=== PATIENT | male | born 2000 | race Caucasian/White ===

== ENCOUNTER → 2020-09-18 09:45 | Outpatient (BNVA) | payer OTHER, SELFPAY | PROVIDERS: PCP Pediatrics; Visit Provider Physician Assistant Medical | DX: S09.22XA Traumatic rupture of left ear drum, initial encounter (principal); S09.21XA Traumatic rupture of right ear drum, initial encounter; W22.8XXA Striking against or struck by other objects, initial encounter | CPT/HCPCS: 99202 ==

== ENCOUNTER 2025-05-27 07:52 | Outpatient (REF) | payer OTHER, SELFPAY ==
--- NOTE | ~2025-05-27 | XR_ITS ---
EXAMINATION: XR LUMBOSACRAL SPINE CLINICAL INFORMATION: M54.16 - Radiculopathy, lumbar region COMPARISON: None available. TECHNIQUE: Three views of the lumbosacral spine. FINDINGS: No scoliosis. There is mild straightening of the normal lordosis. No subluxations. No compression deformity, acute fracture, or suspicious bone lesion. Disc spaces appear grossly preserved. Facets are normally aligned. No significant facet arthrosis noted. Mild periarticular sclerosis of the left SI joint noted, possibly artifactual. Normal-appearing right SI joint. Sacrum is intact. XR/XR lumbar spine 2-3V IMPRESSION: 1. No acute findings of the lumbar spine. 2. Mild periarticular sclerosis of the left SI joint noted, possibly related to technique. Cannot definitively exclude SI joint inflammatory disease. Recommend correlating with dedicated SI joint radiographs. Electronically signed by: Kamar Hope MD 05/27/2025 10:21 AM EDT
== END 2025-05-27 07:53 | disposition home or self-care (01) ==
LOC: HO.HMGCX 07:52
PROVIDERS: PCP Pediatrics; Visit Provider Nurse Practitioner Family
DX: M54.16 Radiculopathy, lumbar region (principal)
CPT/HCPCS: 72100

== ENCOUNTER 2025-05-27 07:52 | Outpatient (AMB) | payer OTHER, SELFPAY ==
--- OUTSIDE RECORDS SUMMARY | 2025-05-27 07:56 | XMS_ITS | Clinical Summary ---
Author Organization [facility] Address [address] [place] [id number] Phone Care Team Providers Care American Studies Professor Name Role Phone Jose Angel Bourne MD Primary Care Provider [phone] Allergies Active Allergy Reactions Criticality Noted Date Comments Fruit Extracts Medications amphetamine-dextro amphetamine XR (Adderall XR) 10 MG 24 hr capsuleIndications :Attention deficit disorder with hyperactivity Take 1 capsule (10 mg total) by mouth every morning. 30 capsule 3 Active Active Problems Problem Noted Date Diagnosed Date Stress 11/10/2022 Wrist sprain, left, initial encounter 06/04/2022 Assessment & Plan (06/04/2022 9:21 AM EDT): Bone bruise or strain to wrist. Recommended rest and ibuprofen. Given wrist splint to give support to wrist for the next week. Neck strain, initial encounter 06/04/2022 Assessment & Plan (06/04/2022 9:22 AM EDT): Strain of trapezii muscles bilaterally. No concern for shoulder joint or rotator cuff. No concern for a spine issue or nerve irritation. Given stretching and strengthening exercises to help with this area. Encounter for smoking cessation counseling 01/20 Assessment & Plan (01/20/2021 2:47 PM EDT): He wants to wean off his nicotine vapes. We will trial him on chantix/Varenicline to try and decreas the effect of the nicotine. We will see him back in 1 month. Chronic bilateral low back pain without sciatica 04/18/2020 Influenza vaccination declined 10/27/2018 Attention deficit disorder with hyperactivity Overview (08/25/2018): Attention deficit hyperactivity disorder (314.01) Onset: 05/19/2011 Added by: Molly Abarca Assessment & Plan (11/10/2022 10:53 PM EST): Prescribing 10mg Adderall XR daily with a follow up in 4-6 weeks to see how this is working for him. He has some history of trouble sleeping when on 20mg Adderall XR in the past. Assessment & Plan (01/20/2021 2:46 PM EDT): He is using adderall xr for work. This is working for him well. 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 He is unclear how to proceed with this. Other atopic dermatitis and related conditions 0 12/18/2015 Overview (08/25/2018): Eczema (691.8) Onset: 12/18/2015 Added by: Jose Angel Bourne Resolved Problems Problem Noted Date Diagnosed Date Resolved Date Acute left-sided low back pa in without sciatica 01/08/2019 02/14/2021 Immunizations Immunization Administration Dates Next Due DTaP 5 06/09/2005, 2,2000,09/14,2000 H1N1 Nasal 08/30/2009 HPV Vaccine 9 Valent 09/19/2017,09/10/2016 HPV, Quadrivalent 01/28/2015 Hep B, ped/adol 08/18/2001,2000,2000 Hib (PRP-T) 08/18/2001, 1,2000,07/18 IPV 06/09/2005, 2,2000,07/18 Influenza, injectable, quadr ivalent, preservative free 09/19/2017 Influenza, injectable, trivalent 013,08/13/2009,10/22/2008,09/08 Influenza, intranasal, trivalent 09/08/2012,08/07,08/07/2010 MMR 06/09/2005,05/17/2001 Meningococcal Conj (Menactra) MCV4P 09/10/2016,1 Pneumococcal Conjugate 08/18/2001,2000,2000,07/18 Tdap 08/19/2011 Varicella 08/19/2011,05/17/2001 Family History Medical History Relation Name Comments No Known Problems Father Mario No Known Problems Half-Sister 1 Althea No Known Problems Half-Sister 2 Samantha No Known Problems Mother Marilynn Relation Name Status Comments Father Mario Alive Half-Sister 1 Althea Alive Half-Sister 2 Samantha Alive Mother Marilynn Alive Social History Tobacco Use Types Packs/Day Years Used Date Smoking Tobacco: Never Smokeless Tobacco: Never Comments:Never Smoker Hunger/Food Answer Date Recorded In the last 12 months, did y warren or your family ever eat less than you felt you should because there wasn't enough money for food? No 01/01/2021 Stable Housing Answer Date Recorded Are you worried that in the next 2 months you may not have stable housing? No 01/01/2021 Transportation Concerns Answer Date Rec orded In the last 12 months, have you or your family ever had to go without healthcare because you didn't have a way to get there? No 01/01/2021 Hazards in Home Answer Date Recorded Think about the place you li ve. Do you have problems with any of the following? Pests (mice or roaches), mold, no/not working smoke detectors, water leaks, no window guards. No 2020 Financing Utilities Answer Date Recorde d In the last 12 months, has t he electric, gas, oil, or water company threatened to shut off your services in your home? No 01/01/2021 Safety at Home Answer Date Recorded Are you or your family worried about feeling saf e in your home? No 01/01/2021 Outside Support Answer Date Recorded Do you feel that you need mo re support from other people or programs to help you care for yourself or your family? No 01/01/2021 Understanding Health Concerns Answer Da te Recorded Do you need help understandi ng your or your child's healthcare needs (diagnosis, medications, plan, etc.)? No 01/01/2021 Financing Health Concerns Answer Date R ecorded In the last 12 months, was t here a time when your child needed to see a doctor or get medications or supplies but could not because of cost? No 01/01/2021 Missing School or Work Answer Date Kerwin rded Did you or your child miss s chool or work because of a health problem that could have been avoided? No 01/01/2021 Sex and Gender Information Value Date Recorded Sex Assigned at Not on file Legal Sex Male 6:37 PM EDT Gender Identity Not on file Sexual Orientation Not on file Last Filed Vital Signs Vital Sign Reading Time Taken Comments Blood Pressure 104/70 11/10/2022 11:09 AM EST Pulse 89 08/09/2022 1:06 PM EDT Temperature 36.5 C (97.7 F) 11/10/2022 11:09 AM EST Respiratory Rate - - Oxygen Saturation - - Inhaled Oxygen Concentration - - Weight 92.1 kg (203 lb 1.6 oz) 11/10/2022 11:09 AM EST Height 181.6 cm (5' 11.5 ) 11/10/2022 11:[address] Body Mass Index 27.93 11/10/2022 11:09 AM EST Plan of Treatment Health Maintenance Due Date Last Done Comments DTaP,Tdap,and Td Vaccines (7 - Td or Tdap) 08/19/2021 08/19/2011, 06/09/2005, 03/02/2002, Additional history exists COVID-19 Vaccine ( season) 2024 Influenza Vaccines (#1) 2025 09/19/20 17, 08/18/2013, 09/08/2012, Additional history exists HIB Vaccines Completed 08/18/2001, 07/2001, 2000, Additional history exists Hepatitis B Vaccines Completed 08/18/2001, 2000, 2000 Pneumococcal Vaccine Completed 08/18/2001, 2000, 2000, Additional history exists IPV Vaccines Completed 06/09/2005, 02/06, 2000, Additional history exists MMR Vaccines Completed 06/09/2005, 05/17/2001 Varicella Vaccines Completed 08/19/2011, 05/17/2001 Meningococcal Vaccine Completed 09/10/2016, 011 HPV Vaccines Completed 09/19/2017, 1102/2016, 01/28/2015 Hepatitis A Vaccines Aged Out No long er eligible based on patient's age to complete this topic Men B Vaccine Aged Out No longer elig ible based on patient's age to complete this topic Insurance [address] [place] [address] [facility] [employer] [facility] [employer] Care Teams American Studies Professor Relationship Specialty Start Date End Date Jose Angel Bourne MD [address] [place] [address] [place] [address] PCP - General 03/15/18
--- NOTE | 2025-05-27 08:01 | MHC.OFFWIV ---
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 Denies any inciting events. Denies any recent illnesses or injuries. 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 Denies any saddle anesthesia or bowel/bladder dysfunction. Denies any pain to touch of his feet. Would like to get established with a PCP and also would like some resources for therapy for general mental health wellness. Reports a 1 year history of intermittent episodes of chest pain which lasts about 1 minute with no aother associated symptoms such as SOB, dizziness, palpitations, or radiation of pain. Denies any pain at this time. Review of Systems Const All systems reviewed & are unremarkable except as noted in HPI and below Physical Exam Vital Signs: Last Vital Signs Temp 98.1 F 05/27/25 08:03 Pulse 74 05/27/25 08:03 BP 110/82 05/27/25 08:03 Pulse Ox 99 05/27/25 08:03 Oxygen Delivery Method Room Air 05/27/25 08:03 BMI result Body Mass Index 29.5 Const General: cooperative, healthy appearing, comfortable, no acute distress and well developed HEENT Head: Yes normal to inspection Resp Effort & Inspection: normal respiratory effort Auscultation: clear to auscultation bilaterally Cardio Jugular venous distension: no JVD Palpation: normal PMI Rate: regular rate Rhythm: regular rhythm Heart sounds: S1 normal heart sound present and S2 normal heart sound present Back/Spine/Pelvis Thoracic/Lumbar Spine: thoracic and lumbar spine normal to inspection, pain with thoraco-lumbar ROM (flexion/extension) and straight leg raise positive (b/l at 45 degrees) Skin General skin exam: no rashes or lesions noted Neuro Other: paresthesias 4th/5th toes General: gait normal, tone normal and no focal motor deficits Cognition (Neuro): normal cognition Extrem General: Yes normal to inspection, Yes full ROM, Yes capillary refill normal, Yes no joint enlargement, Yes no clubbing, cyanosis or edema and Yes no calf tenderness Right lower extremity: foot Details: normal capillary refill, normal to inspection, toes with normal ROM, no edema and vascular exam Details: dorsalis pedis pulse present and posterior tibial pulse present Left lower extremity: foot Details: normal capillary refill, normal to inspection, toes with normal ROM, no edema and vascular exam Details: dorsalis pedis pulse present and posterior tibial pulse present Psych Appearance: grossly normal Mental Status: mental status grossly normal Speech and movement: Normal speech and movement present Assessment & Plan Assessment & Plan (1) Lumbar radiculopathy: Code(s): M54.16 - Radiculopathy, lumbar region Plan: His paresthesias could potentially be resultant of an L5/S1 radiculopathy. It does not appear to be a tarsal tunnel syndrome. He does have some lower back pain and positive straight leg raise. I will send him for x-ray of the lumbar spine today. I will also trial a course of NSAIDs to see if this provides any benefit. We reviewed indications, use, possible side effects of medication. We reviewed some gentle stretching/exercises he can do at home. We discussed that if he develops any worsening symptoms, he should return to clinic for further evaluation. He requested info for therapy for general mental health wellness. I had him speak with community health navigator in the office who provided him with numbers he can call to get established for such services. I also provided him with information for primary care providers within our medical group who are likely accepting new patients. He noted intermittent, brief periods of left-sided chest pain throughout the last year or so. At this time, he does not have any pain. Assessment is normal. Vital signs are normal. We discussed that should this pain occur and not resolve in a short time, or if it is associated with other symptoms such as dizziness, shortness of breath, palpitations, he should go to the emergency department for evaluation. I am hoping he can get established with a primary care provider in the coming weeks for evaluation. All questions were answered and patient verbalizes understanding and agrees to plan. Orders: Orders XR lumbar spine 2-3V Today M54.16 - Radiculopathy, lumbar region Coding Level of Care Code Est Pt Level 4 (27882) Diagnoses Lumbar radiculopathy M54.16
[2025-05-27 08:03] VITALS: BP 110/82; PULSE 74; TEMP 36.7; O2SAT 99; BMI 29.5
== END 2025-05-27 09:26 | disposition home or self-care (01) ==
PROVIDERS: PCP Pediatrics; Visit Provider Nurse Practitioner Family
DX: M54.16 Radiculopathy, lumbar region (principal)

== ENCOUNTER → 2025-05-27 09:20 | Outpatient (BNV) | payer OTHER, SELFPAY | PROVIDERS: PCP Pediatrics; Visit Provider Radiology Diagnostic Radiology | DX: M46.1 Sacroiliitis, not elsewhere classified (principal) | CPT/HCPCS: 72100 ==

== ENCOUNTER 2025-07-05 09:22 | Outpatient (AMB) | payer OTHER, SELFPAY ==
--- NOTE | 2025-07-05 09:18 | MHC.PC.OV ---
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 Bourne HPI Details The patient is a 25-year-old male presenting for an annual physical examination. In addition he would like to discuss fatigue. The patient reports experiencing chest pain in the past, which was severe and prompted a hospital visit. The chest pain was initially thought to be related to smoking, similar to a friend's experience, but it resolved without intervention. The patient also reports chronic back pain, which led to disqualification from the [employer]. He has not pursued therapy for this condition but has had x-rays that indicated a pinched nerve in the sacroiliac joint. The patient experiences fatigue despite adequate sleep, which is concerning given his work schedule of night shifts and long hours. He consumes a significant amount of fluids due to the hot work environment and reports frequent urination. The patient has a family history of diabetes and alcohol use disorder in his father, who also had a motorcycle accident. His mother has joint problems, which are familial. The patient himself has a history of ear surgery and perforation due to an accident. 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 - Family Status: Lives with a partner who prepares meals, contributing to improved dietary habits. - Substance Use: Previously smoked, but quit after experiencing chest pain. - Nutritional Intake: Consumes a diet including chicken, pasta, rice, steak, and vegetables. FOR[facility]LY [facility], [facility] Medical History (Updated 07/05/25 @ 10:42 by Tamara Perera PA-C) Overweight with body mass index (BMI) of 28 to 28.9 in adult Chest pain Preventative health care Back pain Annual physical exam Fatigue Family History Father Diabetes type 2 Mother Arthritis Social History Housing: Apartment Alcohol intake: current Alcohol intake frequency: holidays/special occasions only Patient Tobacco Use Status: Never used Tobacco e-Cigarette/Vaping Use: Currently Using service: No Current occupational status: employed Cognitive needs: No Hearing needs: No Vision needs: Yes (rx glasses) Questionnaire PHQ-9 Over the last 2 weeks, how often have you been bothered by any of the following problems? 1. Little interest or pleasure in doing things: not at all 2. Feeling down, depressed, or hopeless: not at all 3. Trouble falling or staying asleep, or sleeping too much: not at all 4. Feeling tired or having little energy: not at all 5. Poor appetite or overeating: not at all 6. Feeling bad about yourself - or that you are a failure or have let yourself or your family down: not at all 7. Trouble concentrating on things, such as reading the newspaper or watching television: not at all 8. Moving or speaking so slowly that other people could have noticed. Or the opposite - being so fidgety or restless that you have been moving around a lot more than usual: not at all 9. Thoughts that you would be better off or of hurting yourself in some way: not at all Total score: 0 Depression Screening Interpretation: Negative Depression Screening Done: Yes 00843 - PHQ-9 Billing: Yes Source: Developed by Drs. Freedom Craven, Loren Browne, Gregory Zee and colleagues, with an educational munira from [employer]. Thrive Questionnaire Date Thrive assessed: 07/05/25 I am a: Patient What is your living situation today?: I have a steady place to live Within the past 12 months, did the food you bought not last and you didn't have the money to get more?: Never true Within the past 12 months, did you worry whether your food would run out before you got money to buy more?: Never true Do you have trouble paying for medicines?: No Do you have trouble getting transportation to medical appointments?: No Do you have trouble paying your heating and electricity bill?: No Do you have trouble taking care of your child, family member or friend?: No Do you have trouble with day-to-day activities such as bathing, preparing meals, shopping, managing finances, etc.?: No Are you currently unemployed and looking for a job?: No Are you interested in more education?: No Please select the resources that you would like help with: None Currently or been in a relationship where the following occur: No concerns reported THRIVE Score: 0 AUDIT C Alcohol Use Questionnaire (AUDIT-C) 1. How often do you have a drink containing alcohol?: Monthly or less 2. How many drinks containing alcohol do you have on a typical day when you are drinking?: 1 or 2 3. How often do you have six or more drinks on one occasion?: Never Total Score: 1 Score Reviewed/Action Taken: No DEION-7 AMB Questionnaire DEION-7 Date DEION - 7 assessed: 07/05/25 Feeling nervous, anxious, or on edge: 0 = Not at all Not being able to stop or control worryin = Not at all Worrying too much about different things: 0 = Not at all Trouble relaxin = Not at all Being so restless that it is hard to sit still: 0 = Not at all Becoming easily annoyed or irritable: 0 = Not at all Feeling afraid as if something awful might happen: 0 = Not at all Total DEION-7 score (0-4 normal; 5-9 mild; 10-14 moderate; 15-21 severe): 0 Source: Developed by Drs. Freedom Craven, Loren Browne, Gregory Zee and colleagues, with an educational munira from [employer]. DEION-7 Assessment Billing DEION-7 Assessment Tool: DEION-7 Assessment 68273 Review of Systems Const Details: - Cardiovascular: Denies current chest pain or palpitations. - Respiratory: Denies dyspnea or cough. - Neurological: Reports numbness in pinky toes previously, denies current symptoms. - Musculoskeletal: Reports chronic back pain, denies current joint pain. - Genitourinary: Reports frequent urination, denies dysuria. All systems reviewed & are unremarkable except as noted in HPI and below Physical exam (Primary Care) Vital Signs: Last Vital Signs Temp 98.1 F 07/05/25 09:42 Pulse 77 07/05/25 09:42 Resp 16 07/05/25 09:42 BP 120/58 L 07/05/25 09:42 Pulse Ox 98 07/05/25 09:42 Oxygen Delivery Method Room Air 07/05/25 09:42 Care Plan Goal for BP management: <140/90 at Goal BMI result Body Mass Index 28.5 BMI Assessment/Plan discussion: High BMI High, discussed plan: lifestyle, weight reduction, dietary, physical activity, alcohol moderation and other Tobacco/Smoking Status: Tobacco use Status Tobacco use date assessed 07/05/25 07/05/25 09:23 Patient Tobacco Use Status Never used Tobacco 07/05/25 09:42 e-Cigarette/Vaping Use Currently Using 07/05/25 09:45 PHQ-9: PHQ-9 Score PHQ-9: Total score 0 07/05/25 09:45 Depression Screening Interpretation: Negative Thrive Assessment: Date of Thrive Assessment Date Thrive assessed 07/05/25 07/05/25 09:23 Currently or been in a relationship where the following occur: No concerns reported Const Other: Appearance: Alert. Oriented X3. No acute distress. Head: Normal external exam. Normocephalic. Atraumatic. Eyes: Pupils are equal, round, and reactive to light. Extraocular movements intact. Conjunctiva and sclera normal. Eyelids normal. Ears: External auditory canal normal. Tympanic membranes show scarring, with the left ear previously perforated but now normal. Throat: Pharynx normal. Uvula midline. Moist mucous membranes. Neck: Normal inspection. Neck supple. Full range of motion. No adenopathy. Thyroid Normal. No meningeal signs. No neck mass noted. Cardiovascular: Normal heart rate and rhythm. Heart sound normal. No murmurs noted. Pulses normal throughout. Respiratory: No respiratory distress. Painless inspiration. Breath sounds normal. No wheezes/rales/rhonchi noted. Chest nontender. No accessory muscle usage noted or decreased air movement noted. Abdomen: Soft and nontender. Bowel sounds normal in all 4 quadrants. No distention noted. No organomegaly noted. No visible injury noted. Back: No costovertebral angle tenderness. Full range of motion noted. Mild periarticular sclerosis of the left SI joint noted. Skin: Skin warm and dry. Normal skin color. Normal skin turgor. No rashes/lesions/lacerations noted. Extremities: No lower extremity edema. Extremities exhibit normal range of motion. Extremities nontender. Neuro: Oriented X 3. No motor deficit. No sensory deficit. Reflexes normal. Results Reviewed Results Reviewed: - Labs: Hemoglobin A1c test performed, result 5.3%, indicating no diabetes. Coding Level of Care Code New Pt Level 4 (80950) New Pt Prev Care 18-39yr(15547 Diagnoses Annual physical exam Z00.00 Back pain M54.9 Fatigue R53.83 Preventative health care Z00.00 Chest pain R07.9 Overweight with body mass index (BMI) of 28 to 28.9 in adult E66.3; Z68.28 Additional Codes PHQ-9 - 39380 - PHQ-9 Billing: Yes ([id number]) DEION-7 Assessment Billing - DEION-7 Assessment Tool: DEION-7 Assessment 89977 ([id number]) Assessment & Plan Assessment & Plan (1) Annual physical exam: Code(s): Z00.00 - Encounter for general adult medical examination without abnormal findings Category: Medical (2) Back pain: Code(s): M54.9 - Dorsalgia, unspecified Category: Medical Plan: The patient reports chronic back pain, which led to disqualification from the [employer]. X-rays indicated a pinched nerve in the sacroiliac joint. The patient has not pursued therapy but has been advised to consider muscle relaxants if symptoms worsen. (3) Fatigue: Code(s): R53.83 - Other fatigue Category: Medical Plan: The patient experiences fatigue despite adequate sleep. A home sleep study has been recommended to assess for potential sleep disorders. Blood work has been ordered to rule out underlying conditions such as diabetes or thyroid dysfunction. (4) Preventative health care: Code(s): Z00.00 - Encounter for general adult medical examination without abnormal findings Category: Medical Plan: Comprehensive blood work has been ordered, including CBC, CMP, cholesterol, diabetes screening, PSA, thyroid function tests, vitamin B12, vitamin D, magnesium, and testosterone. The patient has been advised to fast before the tests and to follow up with results. (5) Chest pain: Code(s): R07.9 - Chest pain, unspecified Category: Medical Plan: The patient experienced severe chest pain in the past, which resolved without intervention. It was initially thought to be related to smoking, and the patient quit smoking, which may have contributed to the resolution of symptoms. (6) Overweight with body mass index (BMI) of 28 to 28.9 in adult: Code(s): E66.3 - Overweight; Z68.28 - Body mass index [BMI] 28.0-28.9, adult Category: Medical Plan: To improve diet and exercise regimen. Condition is chronic and stable will continue to monitor. Plan Plan Patient was informed and verbally consented to the use of an ambient scribe for clinic note documentation during this visit. 1. Chest Pain The patient experienced severe chest pain in the past, which resolved without intervention. It was initially thought to be related to smoking, and the patient quit smoking, which may have contributed to the resolution of symptoms. 2. Back Pain The patient reports chronic back pain, which led to disqualification from the [employer]. X-rays indicated a pinched nerve in the sacroiliac joint. The patient has not pursued therapy but has been advised to consider muscle relaxants if symptoms worsen. 3. Fatigue The patient experiences fatigue despite adequate sleep. A home sleep study has been recommended to assess for potential sleep disorders. Blood work has been ordered to rule out underlying conditions such as diabetes or thyroid dysfunction. 4. Preventative Care Comprehensive blood work has been ordered, including CBC, CMP, cholesterol, diabetes screening, PSA, thyroid function tests, vitamin B12, vitamin D, magnesium, and testosterone. The patient has been advised to fast before the tests and to follow up with results. During the visit, I discussed with the patient the importance of conducting comprehensive blood work to establish a baseline for his health. We talked about the potential causes of his fatigue, including sleep disorders and metabolic issues, and I recommended a home sleep study. I also advised him on the need to fast before the blood tests and provided information on where to get them done. We reviewed his family history and discussed the significance of monitoring for diabetes and other conditions. I assured him that I would follow up with the results and any necessary interventions. Orders: Orders C Reactive Protein Today Z00.00 - Encounter for general adult medical examination without abnormal findings Complete Blood Count Auto Diff Today Z00.00 - Encounter for general adult medical examination without abnormal findings Comprehensive [place]. Panel Fast Today Z00.00 - Encounter for general adult medical examination without abnormal findings Lipid Panel Today Z00.00 - Encounter for general adult medical examination without abnormal findings Liver Panel Today Z00.00 - Encounter for general adult medical examination without abnormal findings Vitamin B12 and Folate Today Z00.00 - Encounter for general adult medical examination without abnormal findings Vitamin D 25-OH Total Today Z00.00 - Encounter for general adult medical examination without abnormal findings Magnesium Today Z00.00 - Encounter for general adult medical examination without abnormal findings Dihydrotestosterone Today Z00.00 - Encounter for general adult medical examination without abnormal findings PSA,Total (Free>4and<10) Today Z00.00 - Encounter for general adult medical examination without abnormal findings TSH reflex Free T4 Today Z00.00 - Encounter for general adult medical examination without abnormal findings Testosterone, Free/Total Today Z00.00 - Encounter for general adult medical examination without abnormal findings DHEA Sulfate Today Z00.00 - Encounter for general adult medical examination without abnormal findings RT home sleep study Today R53.83 - Other fatigue AMB Hemoglobin A1c Today Z13.9 - Encounter for screening, unspecified Patient Instructions: - Fast for 10-12 hours before blood tests. - Visit the lab for blood work at your convenience, no appointment needed. - Expect a call for a home sleep study within a month. - Monitor for any new or worsening symptoms and report them. - Follow a balanced diet and maintain hydration, especially during night shifts.
[2025-07-05 09:42] VITALS: BP 120/58; PULSE 77; RESP 16; TEMP 36.7; O2SAT 98; BMI 28.5
--- OUTSIDE RECORDS SUMMARY | 2025-07-05 10:13 | XMS_ITS | Encounter Summary ---
Author Organization [facility] Address [address] [place] [id number] Phone Care Team Providers Care Paraprofessional Education Assistant Name Role Phone Jose Angel Bourne MD Primary Care Provider [phone] Encounter Details Date Type Department Care Team (Late st Contact Info) Description 03/26/2018 Conversion Encounter [facility] [address] [place] [address] [place] [id number] Jose Angel Bourne MD [address] [place] [address] [place] [phone] Social History Tobacco Use Types Packs/Day Years Used Date Smoking Tobacco: Never Comments:Never Smoker Sex and Gender Information Value Date Recorded Sex Assigned at Not on file Legal Sex Male 6:37 PM EDT Gender Identity Not on file Sexual Orientation Not on file documented as of this encounter Plan of Treatment Not on file documented as of this encounter Visit Diagnoses Not on filedocumented in this encounter Care Teams Paraprofessional Education Assistant Relationship Specialty Start Date End Date Jose Angel Bourne MD [address] [place] [address] [place] [id number] PCP - General 03/15/18 documented as of this encounter
--- OUTSIDE RECORDS SUMMARY | 2025-07-05 10:13 | XMS_ITS | Clinical Summary ---
Author Organization [facility] Address [address] [place] [id number] Phone Care Team Providers Care Remote Medical Coder Name Role Phone Jose Angel Bourne MD Primary Care Provider [phone] Allergies Active Allergy Reactions Criticality Noted Date [...] him well. 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 He is unclear how to proceed [...] age to complete this topic Insurance [address] [place] [address] [facility] [employer] [employer] Care Teams Remote Medical Coder Relationship Specialty Start Date End Date Jose Angel Bourne MD [address] [place] [address] [place] [id number] PCP - General 03/15/18
== END 2025-07-05 10:36 | disposition home or self-care (01) ==
LOC: HO.HMCSH 09:22
PROVIDERS: PCP Pediatrics; Visit Provider Physician Assistant Medical
DX: Z00.00 Encounter for general adult medical examination without abnormal findings (principal); R07.9 Chest pain, unspecified; Z68.28 Body mass index [BMI] 28.0-28.9, adult; E66.3 Overweight; M54.9 Dorsalgia, unspecified; R53.83 Other fatigue; Z13.9 Encounter for screening, unspecified

== ENCOUNTER → 2025-07-05 09:22 | Outpatient (BNVA) | payer OTHER, SELFPAY | PROVIDERS: PCP Pediatrics; Visit Provider Physician Assistant Medical | DX: Z00.00 Encounter for general adult medical examination without abnormal findings (principal); R53.83 Other fatigue; M54.9 Dorsalgia, unspecified; G89.29 Other chronic pain; E11.9 Type 2 diabetes mellitus without complications; R07.9 Chest pain, unspecified; E66.3 Overweight; Z68.28 Body mass index [BMI] 28.0-28.9, adult | CPT/HCPCS: 83036; 96127 ==